=== PATIENT | female | born 1970 | race Caucasian/White ===

== ENCOUNTER 2021-03-09 06:00 | Day surgery (SDC) | payer OTHER | END 2021-03-09 14:40 | disposition home or self-care (01) | LOC: CIR.AMB 06:00 | PROVIDERS: ATTEND Orthopaedic Surgery Hand Surgery | DX: M65.232 Calcific tendinitis, left forearm (principal); Z20.822 Contact with and (suspected) exposure to COVID-19 ==

== ENCOUNTER 2021-03-09 07:47 | Outpatient (CLI) | payer OTHER | END 2021-03-09 07:48 | disposition home or self-care (01) | LOC: LAB 07:47 | PROVIDERS: ATTEND Anesthesiology | DX: Z11.59 Encounter for screening for other viral diseases (principal); Z03.818 Encounter for observation for suspected exposure to other biological agents ruled out ==